=== PATIENT | male | born 2000 | race Caucasian/White ===

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

== ENCOUNTER 2019-04-16 07:52 | Emergency (ER) | payer OTHER ==
[~2019-04-16] VITALS: Ht 177.8 cm; Wt 77.2 kg
[~2019-04-16 07:52] MED LIST changes: +IBUP-1022 PO; +SERT-141 PO; -SERT50TA PO
[2019-04-16] MEDS ORDERED: NS 1,000 ML IV SCH (08:30)
[2019-04-16 08:57] LABS: BASO % 0.2 % (0.0-1.0); EOS # 0.1 10^3/uL (0.0-0.5); EOS % 0.3 % (0.0-3.0); HEMATOCRIT 45.2 % (42.0-52.0); HEMOGLOBIN 15.4 g/dl (13.5-17.5); LYMPH # 2.3 10^3/uL (1.5-5.0); LYMPH % 12.7 % (24.0-44.0); MEAN CORPUSCULAR HEMOGLOBIN 30.7 pg (27.0-33.0); MEAN CORPUSCULAR HGB CONC 34.1 g/dl (32.0-36.5); MONO # 0.7 10^3/uL (0.0-0.8); MONO % 3.7 % (0.0-5.0); NEUTROPHILS # 15.2 10^3/uL (1.5-8.5); NEUTROPHILS % 82.7 % (36.0-66.0); PLATELET COUNT, AUTOMATED 267 10^3/uL (150-450); RED BLOOD COUNT 5.02 10^6/uL (4.30-6.10); WHITE BLOOD COUNT 18.4 10^3/uL (4.0-10.0)
[2019-04-16 09:26] LABS: ALBUMIN 4.5 GM/DL (3.2-5.2); ALT/SGPT 24 U/L (12-78); BILIRUBIN,DIRECT 0.2 MG/DL (0.0-0.2); BILIRUBIN,TOTAL 0.7 MG/DL (0.2-1.0); BLOOD UREA NITROGEN 10 MG/DL (7-18); CALCIUM LEVEL 9.8 MG/DL (8.5-10.1); CARBON DIOXIDE LEVEL 31 MEQ/L (21-32); CHLORIDE LEVEL 104 MEQ/L (98-107); CREATININE FOR GFR 0.78 MG/DL (0.70-1.30); GLUCOSE, FASTING 106 MG/DL (70-100); LIPASE 80 U/L (73-393); POTASSIUM SERUM 3.8 MEQ/L (3.5-5.1); SODIUM LEVEL 139 MEQ/L (136-145)
[2019-04-16] MEDS: GASTROGRAFIN SOLUTION 30ML PO SCH ×2 (09:56→10:20)
[2019-04-16] MEDS ORDERED: ONDANSETRON 4MG/2ML VIAL (J2405) IV ONE (10:30)
[2019-04-16] MEDS ORDERED: ISOVUE-370 76% 100ML VIAL (Q9967) As Ordered ONE (11:29)
[2019-04-16] MEDS ORDERED: KETOROLAC 30 MG/ML VIAL (J1885) IV ONE (12:00)
--- NOTE | 2019-04-16 12:20 | REP ---
CT ABDOMEN PELVIS WITH IV AND ORAL CONTRAST: HISTORY: Abdomen pain. Bloody stools. CT CONTRAST DOSE: 100 mL of intravenous Isovue 370. CT FINDINGS: Digital preliminary swim coach radiograph is unremarkable. There are several tiny granulomatous nodules in the lung bases bilaterally. No pleural effusion is seen. The liver and spleen are normal in size homogeneous in texture. There is a tiny splenule in the left upper quadrant. No adrenal lesion is observed. No abnormalities noted in the pancreas. The gallbladder is unremarkable. The kidneys enhance symmetrically and are morphologically intact. No hydronephrosis or calculus is seen. No retroperitoneal mass or adenopathy is observed. There is a pattern of mild mural thickening diffusely involving the left colon distal to the splenic flexure region consistent with enterocolitis. Seminal vesicles prostate and urinary bladder are unremarkable. The distal ileum appears intact. A normal appendix is seen medial to the cecum. This extends well into the right inferior pelvis. There is no appendiceal inflammation. No abdominal wall defect is seen. There is no evidence of free intraperitoneal air or abnormal fluid collection. No bony destructive lesion is appreciated. IMPRESSION: Mild enterocolitis picture involving the left colon distal to the splenic flexure. Granulomatous nodules in the lung bases bilaterally. Electronically Signed by Rafiq Hannon MD 04/16/2019 05:16 P
[2019-04-16] MEDS ORDERED: ONDA4TAB6 PO (12:50)
[2019-04-16 13:24] LABS: C REACTIVE PROTEIN QUANTITATIV < 0.30 MG/DL (0.00-0.30); RHEUMATOID FACTOR QUANT < 10.0 IU/ML (<15.0)
[2019-04-16 13:41] VITALS: BP 132/78
[2019-04-16 13:59] LABS: ERYTHROCYTE SEDIMENTATION RATE 3 mm/hr (0-15)
[2019-04-19 00:07] LABS: ANCA-ATYPICAL <1:20 titer (Neg:<1:20); ANTINUCLEAR ANTIBODIES DIRECT Negative (Negative); CYTOPLASMIC NEUTROP AB ANCA-C <1:20 titer (Neg:<1:20); PERINUCLEAR AB ANCA-P <1:20 titer (Neg:<1:20)
== END 2019-04-16 13:42 | disposition home or self-care (01) ==
LOC: M ED 07:52
DX: K52.9 Noninfective gastroenteritis and colitis, unspecified (principal); J98.4 Other disorders of lung; K92.1 Melena; D72.829 Elevated white blood cell count, unspecified; J45.909 Unspecified asthma, uncomplicated; F33.9 Major depressive disorder, recurrent, unspecified; F41.9 Anxiety disorder, unspecified
CPT/HCPCS: 74177; 80048; 80076; 81001; 83690; 85025; 85652; 86038; 86140; 86256; 86431; 86850; 86900; 86901; 87507; 96374; 96375; 99284; J1885; J2405; Q9963; Q9967

== ENCOUNTER → 2019-06-18 | Outpatient (CLI) | payer OTHER ==
[~2019-06-18] MED LIST changes: +AMOX875T2; +ISOVUE-370 76% 100ML VIAL (Q9967) As Ordered ONE; +ONDA4TAB6 PO
--- NOTE | 2019-06-18 09:36 | REP ---
Clinical: Abnormal lung findings. Technique: Axial contrast enhanced images from the thoracic inlet to the upper abdomen with coronal and sagittal re-formations using 75 ml Isovue 370 intravenous contrast material. Comparison: None. Findings: The bilateral lung tierney are well-aerated and relatively symmetric. Few small scattered lower lobe nodules up to approximately 2 mm remains stable and consistent with small likely benign granulomas. No further consolidation, significant nodule or mass lesion. No pleural effusion. No pneumothorax. Tracheobronchial tree is patent. No adenopathy. Mediastinum demonstrates normal thoracic aorta, pulmonary vasculature and heart/pericardium. Limited upper abdomen demonstrates normal bilateral adrenal glands. Musculoskeletal structures are intact. Impression: 1. Few stable scattered small basilar granulomas up to 2 mm likely representing benign granulomatous changes. 2. No significant mediastinal or pleuroparenchymal process otherwise noted. Electronically Signed by Sky Melvin MD 06/18/2019 09:27 A
== END ==
LOC: M RAD 08:45
PROVIDERS: ATTEND Internal Medicine Pulmonary Disease
DX: R91.8 Other nonspecific abnormal finding of lung field (principal)
CPT/HCPCS: 71260; Q9967

== ENCOUNTER → 2019-06-19 | Outpatient (REF) | payer OTHER ==
[~2019-06-19] MED LIST changes: -ISOVUE-370 76% 100ML VIAL (Q9967) As Ordered ONE
== END ==
LOC: M LAB REF 17:06
PROVIDERS: ATTEND Physician Assistant
DX: J02.9 Acute pharyngitis, unspecified (principal)

== ENCOUNTER 2019-06-20 16:21 | Emergency (ER) | payer OTHER ==
[~2019-06-20] VITALS: Ht 175.3 cm; Wt 74.4 kg
[~2019-06-20 16:21] MED LIST changes: -AMOX875T2
[2019-06-20] MEDS ORDERED: AMOX875T2 (16:31)
[2019-06-20] MEDS ORDERED: diphenhydrAMINE INJ 50MG/ML VIAL (J1200) IV ONE (19:30)
[2019-06-20] MEDS ORDERED: KETOROLAC 30 MG/ML VIAL (J1885) IV ONE (19:30)
[2019-06-20] MEDS ORDERED: NS 1,000 ML IV ONE (19:30)
[2019-06-20] MEDS ORDERED: METOCLOPRAMIDE INJ 10MG/2ML VIAL (J2765) IV ONE (19:30)
[2019-06-20 20:13] LABS: HEMOGLOBIN 15.8 g/dl (13.5-17.5); MEAN CORPUSCULAR HEMOGLOBIN 30.8 pg (27.0-33.0); MEAN CORPUSCULAR HGB CONC 34.3 g/dl (32.0-36.5); MEAN CORPUSCULAR VOLUME 89.7 fl (80.0-96.0); PLATELET COUNT, AUTOMATED 177 10^3/uL (150-450); RED BLOOD COUNT 5.13 10^6/uL (4.30-6.10); WHITE BLOOD COUNT 8.3 10^3/uL (4.0-10.0)
[2019-06-20 20:36] LABS: ATYPICAL LYMPH 19 % (0-5); BASOPHILS 2 % (0-1); EOSINOPHILS 1 % (0-3); LYMPHOCYTES 21 % (16-44); MONOCYTES 5 % (0-5); NEUTROPHILS 47 % (28-66)
[2019-06-20 20:38] LABS: PLATELET ESTIMATE NORMAL (NORMAL)
--- NOTE | 2019-06-20 20:41 | REPVR ---
PROCEDURE INFORMATION: Exam: CT Head Without Contrast Exam date and time: 06/20/2019 7:31 PM Age: 18 years old Clinical indication: Pain; Headache; Additional info: Severe headache, neck stiffness TECHNIQUE: Imaging protocol: Computed tomography of the head without contrast. Radiation optimization: All CT scans at this facility use at least one of these dose optimization techniques: automated exposure control; mA and/or kV adjustment per patient size (includes targeted exams where dose is matched to clinical indication); or iterative reconstruction. COMPARISON: CT Head without contrast 07/26/2016 12:00 PM FINDINGS: Brain: The amezcua-white differentiation appears preserved. There is no evidence of mass effect. Ventricles: Normal ventricles. Bones/joints: There is no evidence of fracture. Sinuses: Clear paranasal sinuses. Mastoid air cells: Clear mastoid air cells. Soft tissues: Unremarkable. IMPRESSION: Normal appearing CT scan of the brain Electronically signed by: Michael Wade On 06/20/2019 20:40:52 PM
[2019-06-20 20:42] LABS: ALBUMIN 4.2 GM/DL (3.2-5.2); ALT/SGPT 41 U/L (12-78); BILIRUBIN,DIRECT 0.2 MG/DL (0.0-0.2); BILIRUBIN,TOTAL 0.5 MG/DL (0.2-1.0); BLOOD UREA NITROGEN 5 MG/DL (7-18); CALCIUM LEVEL 9.1 MG/DL (8.5-10.1); CARBON DIOXIDE LEVEL 29 MEQ/L (21-32); CHLORIDE LEVEL 102 MEQ/L (98-107); CREATININE FOR GFR 0.84 MG/DL (0.70-1.30); GLUCOSE, FASTING 90 MG/DL (70-100); LIPASE 86 U/L (73-393); POTASSIUM SERUM 3.7 MEQ/L (3.5-5.1); SODIUM LEVEL 138 MEQ/L (136-145); TOTAL PROTEIN 7.3 GM/DL (6.4-8.2)
--- NOTE | 2019-06-20 20:49 | REPVR ---
PROCEDURE INFORMATION: Exam: CT Cervical Spine Without Contrast Exam date and time: 06/20/2019 7:31 PM Age: 18 years old Clinical indication: Neck pain; Additional info: Severe neck pain, headache TECHNIQUE: Imaging protocol: Computed tomography images of the cervical spine without contrast. Radiation optimization: All CT scans at this facility use at least one of these dose optimization techniques: automated exposure control; mA and/or kV adjustment per patient size (includes targeted exams where dose is matched to clinical indication); or iterative reconstruction. COMPARISON: No relevant prior studies available. FINDINGS: Vertebrae: The cervical vertebra and facet joints appear in alignment. The dens appears intact in the lateral masses of C1 appear symmetric. Discs/Spinal canal/Neural foramina: No disc herniations. No spinal canal stenosis. No neural foraminal narrowing. Retropharyngeal space: There is no evidence of retropharyngeal soft tissue swelling. Soft tissues: Unremarkable. Thyroid: Normal thyroid. Lymph nodes: There are approximally 12 lymph nodes at the right side of the neck with the largest measuring 1.7 cm. There are approximately 8 small lymph nodes left side of the neck. IMPRESSION: 1. No evidence of fracture. 2. Enlarged lymph nodes right side of the neck. Electronically signed by: Michael Wade On 06/20/2019 20:49:01 PM
[2019-06-20 21:45] LABS: MONO SCRN POSITIVE (NEGATIVE)
[2019-06-20 22:26] VITALS: BP 124/56
== END 2019-06-20 22:26 | disposition home or self-care (01) ==
LOC: M ED 16:21
DX: B27.90 Infectious mononucleosis, unspecified without complication (principal); R59.9 Enlarged lymph nodes, unspecified
CPT/HCPCS: 70450; 72125; 80048; 80076; 81001; 83605; 83690; 85025; 86308; 87040; 87486; 87581; 87633; 87798; 96374; 96375; 99284; J1200; J1885; J2765

== ENCOUNTER → 2019-06-28 | Outpatient (CLI) | payer OTHER ==
[~2019-06-28] MED LIST changes: +AMOX875T2
--- NOTE | 2019-06-28 09:43 | REP ---
Clinical: Mononucleosis. Splenomegaly. Technique: Real time amezcua scale ultrasound examination using curved array transducer. Findings: Ultrasound examination demonstrates enlarged spleen measuring 13.5 x 13.3 x 7.0 cm (splenic index equals 1240). The 12 mm splenule is identified adjacent to the hilum. No significant splenic mass lesion. The left kidney is normal in reniform shape without hydronephrosis and measures 12.3 x 5.9 x 4.5 cm. No ascites in the left upper quadrant noted. Impression: Splenomegaly without focal splenic lesion identified. Electronically Signed by Sky Melvin MD 06/28/2019 09:35 A
== END ==
LOC: M RAD 09:01
PROVIDERS: ATTEND Physician Assistant
DX: R10.9 Unspecified abdominal pain (principal)

== ENCOUNTER → 2019-07-18 | Outpatient (CLI) | payer OTHER ==
--- NOTE | 2019-07-19 07:29 | REP ---
Clinical: History of mononucleosis with splenomegaly. Comparison: 06/28/2019. Technique: Real time amezcua scale and color evaluation using curved array transducer. Findings: The spleen is normal in contour, size, echogenicity without focal splenic lesion identified. Spleen measures 11.6 x 4.4 x 11.0 cm (splenic index = 561). Left kidney is normal in reniform shape and echogenicity without hydronephrosis and measures 11.7 x 5.0 x 5.2 cm. No ascites in the visualized left upper quadrant. Impression: Normal spleen. Electronically Signed by Sky Melvin MD 07/19/2019 07:20 A
== END ==
LOC: M RAD 09:48
PROVIDERS: ATTEND Physician Assistant
DX: R16.1 Splenomegaly, not elsewhere classified (principal)

== ENCOUNTER → 2020-02-26 | Outpatient (CLI) | payer OTHER ==
[2020-02-26 18:28] LABS: BASO # 0.1 10^3/uL (0.0-0.2); BASO % 0.5 % (0.0-1.0); EOS # 0.1 10^3/uL (0.0-0.5); EOS % 1.1 % (0.0-3.0); HEMATOCRIT 44.9 % (42.0-52.0); HEMOGLOBIN 14.5 g/dl (13.5-17.5); LYMPH # 3.1 10^3/uL (1.5-5.0); MEAN CORPUSCULAR HEMOGLOBIN 29.8 pg (27.0-33.0); MEAN CORPUSCULAR HGB CONC 32.3 g/dl (32.0-36.5); MEAN CORPUSCULAR VOLUME 92.4 fl (80.0-96.0); MONO # 0.6 10^3/uL (0.0-0.8); MONO % 6.4 % (0.0-5.0); NEUTROPHILS # 6.1 10^3/uL (1.5-8.5); NEUTROPHILS % 60.7 % (36.0-66.0); PLATELET COUNT, AUTOMATED 249 10^3/uL (150-450); RED BLOOD COUNT 4.86 10^6/uL (4.30-6.10)
[2020-02-26 18:36] LABS: ALBUMIN 4.3 GM/DL (3.2-5.2); ALT/SGPT 16 U/L (12-78); AMYLASE 34 U/L (25-115); BILIRUBIN,TOTAL 0.5 MG/DL (0.2-1.0); BLOOD UREA NITROGEN 12 MG/DL (7-18); CALCIUM LEVEL 9.3 MG/DL (8.5-10.1); CARBON DIOXIDE LEVEL 31 MEQ/L (21-32); CHLORIDE LEVEL 105 MEQ/L (98-107); CREATININE FOR GFR 0.86 MG/DL (0.70-1.30); GLUCOSE, FASTING 93 MG/DL (70-100); LIPASE 80 U/L (73-393); POTASSIUM SERUM 4.2 MEQ/L (3.5-5.1); SODIUM LEVEL 142 MEQ/L (136-145); TOTAL PROTEIN 7.3 GM/DL (6.4-8.2)
[2020-02-27 07:18] LABS: H PYLORI QUALITATIVE IgG NEGATIVE (NEGATIVE)
== END ==
LOC: M WUC 15:24
PROVIDERS: ATTEND Nurse Practitioner Family
DX: R10.84 Generalized abdominal pain (principal)

== ENCOUNTER → 2020-07-08 | Outpatient (CLI) | payer OTHER ==
--- NOTE | 2020-07-08 14:26 | REP ---
INDICATION: ABNORMAL FINDING OF LUNG FIELD COMPARISON: 06/18/2019 TECHNIQUE: Axial noncontrast images from the thoracic inlet to the upper abdomen with coronal and sagittal reformations. This CT examination was performed using the following dose reduction techniques: Automated exposure control, adjustment of mA and/or kv according to the patient's size, and use of iterative reconstruction technique. FINDINGS: Bilateral lung tierney are relatively well aerated and symmetric. Few stable noncalcified nodules at the lung bases measuring up to roughly 2-3 mm are unchanged. No new consolidation, suspicious nodule or mass lesion appreciated. No pleural effusion. No pneumothorax. Tracheobronchial tree is patent. No adenopathy. Further evaluation of the mediastinum demonstrates normal thoracic aorta, pulmonary vasculature, and heart/pericardium. Small amount of residual thymic tissue in the anterior mediastinum noted and stable. Thyroid gland is normal. Surrounding musculoskeletal structures are intact. Limited upper abdomen demonstrates normal bilateral adrenal glands. IMPRESSION: Small stable scattered noncalcified granulomas up to 2-3 mm without new acute process appreciated. Findings likely represent sequelae of prior granulomatous disease. <Electronically signed by Sky Melvin > 07/08/20 [id number]
== END ==
LOC: M RAD 13:38
PROVIDERS: ATTEND Physician Assistant
DX: R91.8 Other nonspecific abnormal finding of lung field (principal)

== ENCOUNTER 2020-07-19 10:14 | Emergency (ER) | payer OTHER ==
[~2020-07-19] VITALS: Ht 175.3 cm; Wt 72.1 kg
[2020-07-19 11:15] LABS: BASO # 0.1 10^3/uL (0.0-0.2); BASO % 0.6 % (0.0-1.0); EOS # 0.2 10^3/uL (0.0-0.5); EOS % 2.3 % (0.0-3.0); HEMATOCRIT 44.9 % (42.0-52.0); HEMOGLOBIN 15.1 g/dl (13.5-17.5); LYMPH # 2.8 10^3/uL (1.5-5.0); LYMPH % 33.8 % (24.0-44.0); MEAN CORPUSCULAR HEMOGLOBIN 30.5 pg (27.0-33.0); MEAN CORPUSCULAR HGB CONC 33.6 g/dl (32.0-36.5); MEAN CORPUSCULAR VOLUME 90.7 fl (80.0-96.0); MONO # 0.6 10^3/uL (0.0-0.8); MONO % 6.9 % (2.0-8.0); NEUTROPHILS # 4.7 10^3/uL (1.5-8.5); NEUTROPHILS % 55.9 % (36.0-66.0); PLATELET COUNT, AUTOMATED 233 10^3/uL (150-450); RED BLOOD COUNT 4.95 10^6/uL (4.30-6.10); WHITE BLOOD COUNT 8.3 10^3/uL (4.0-10.0)
[2020-07-19] MEDS ORDERED: ACETAMINOPHEN 500 MG TAB PO ONE (11:30)
[2020-07-19 11:40] LABS: BLOOD UREA NITROGEN 13 MG/DL (7-18); CALCIUM LEVEL 9.6 MG/DL (8.5-10.1); CARBON DIOXIDE LEVEL 31 MEQ/L (21-32); CHLORIDE LEVEL 104 MEQ/L (98-107); CREATININE FOR GFR 0.86 MG/DL (0.70-1.30); GLOMERULAR FILTRATION RATE > 60.0 (>60); GLUCOSE, FASTING 92 MG/DL (70-100); POTASSIUM SERUM 4.3 MEQ/L (3.5-5.1); SODIUM LEVEL 138 MEQ/L (136-145)
[2020-07-19 12:48] LABS: CHLAMYDIA DNA AMPLIFICATION NEGATIVE (NEGATIVE); GC DNA AMPLIFICATION NEGATIVE (NEGATIVE)
--- NOTE | 2020-07-19 12:50 | REP ---
INDICATION: reported lump left testicle COMPARISON: None. TECHNIQUE: Christianson scale and color Doppler evaluation using linear and curved array transducer with color Doppler evaluation. FINDINGS: The bilateral testicles are normal in appearance and vascularity without evidence for infectious/inflammatory process, torsion, or mass. Right epididymal cyst measures 3 mm and right tunica cyst measures 3 mm. Left epididymal cyst measures 2 mm. No hydrocele. No varicoceles. Further directed ultrasound over the presumed left palpable mass demonstrates no obvious underlying abnormality. Right testicle measures 4.4 x 2.2 x 3.3 cm. Left testicle measures 3.9 x 1.9 x 2.8 cm. IMPRESSION: Incidental epididymal and tunica cysts. Normal bilateral testicles. Palpable mass without underlying corresponding abnormality by ultrasound. <Electronically signed by Sky Melvin > 07/19/20 [id number]
[2020-07-19] MEDS ORDERED: MUPI2OI TOP (13:12)
[2020-07-19 13:19] VITALS: BP 123/71
--- NOTE | 2020-07-20 12:41 | ED PDOC ---
Post-Departure Follow-Up scrotal us faxed to dr saucedo for fu Dennis Beach MD Jul 20, 2020 12:41
== END 2020-07-19 13:21 | disposition home or self-care (01) ==
LOC: M ED 10:14
DX: N50.3 Cyst of epididymis (principal); L73.9 Follicular disorder, unspecified; N44.1 Cyst of tunica albuginea testis; F17.200 Nicotine dependence, unspecified, uncomplicated

== ENCOUNTER → 2021-07-16 | Outpatient (CLI) | payer OTHER ==
[~2021-07-16] MED LIST changes: -CEFD1CAP8 PO; +CEFD300C41 PO; +MUPI2OI TOP
== END ==
LOC: M RAD 07:12
PROVIDERS: ATTEND Physician Assistant
DX: R91.8 Other nonspecific abnormal finding of lung field (principal)

== ENCOUNTER 2021-08-27 12:36 | Emergency (ER) | payer OTHER ==
[~2021-08-27] VITALS: Ht 177.8 cm; Wt 75.3 kg
[2021-08-27] MEDS ORDERED: KETOROLAC 30 MG/ML 1ML VIAL IV ONE (15:25)
[2021-08-27 16:14] LABS: BASO # 0.1 10^3/uL (0.0-0.2); BASO % 0.5 % (0.0-1.0); EOS # 0.1 10^3/uL (0.0-0.5); EOS % 0.8 % (0.0-3.0); HEMATOCRIT 45.6 % (42.0-52.0); HEMOGLOBIN 15.7 g/dl (13.5-17.5); LYMPH # 2.9 10^3/uL (1.5-5.0); LYMPH % 29.3 % (24.0-44.0); MEAN CORPUSCULAR HEMOGLOBIN 30.8 pg (27.0-33.0); MEAN CORPUSCULAR HGB CONC 34.4 g/dl (32.0-36.5); MEAN CORPUSCULAR VOLUME 89.6 fl (80.0-96.0); MONO # 0.6 10^3/uL (0.0-0.8); MONO % 6.3 % (2.0-8.0); NEUTROPHILS # 6.2 10^3/uL (1.5-8.5); NEUTROPHILS % 62.7 % (36.0-66.0); PLATELET COUNT, AUTOMATED 259 10^3/uL (150-450); RED BLOOD COUNT 5.09 10^6/uL (4.30-6.10); WHITE BLOOD COUNT 9.8 10^3/uL (4.0-10.0)
[2021-08-27 16:22] LABS: BLOOD UREA NITROGEN 7 MG/DL (7-18); CALCIUM LEVEL 9.9 MG/DL (8.5-10.1); CARBON DIOXIDE LEVEL 27 MEQ/L (21-32); CHLORIDE LEVEL 106 MEQ/L (98-107); CREATININE FOR GFR 0.68 MG/DL (0.70-1.30); GLOMERULAR FILTRATION RATE > 60.0 (>60); GLUCOSE, FASTING 89 MG/DL (70-100); POTASSIUM SERUM 4.1 MEQ/L (3.5-5.1); SODIUM LEVEL 139 MEQ/L (136-145)
[2021-08-27 16:27] LABS: CK-MB VALUE MASS < 1.0 NG/ML (<3.6); CPK CREATINE PHOSPHOKINASE 94 U/L (39-308); MB/CK RELATIVE INDEX 1.06 (< OR =4)
[2021-08-27] MEDS ORDERED: NAPR-837 PO (16:49)
[2021-08-27 17:02] VITALS: BP 119/61
[2021-08-27 17:51] LABS: RSV AMPLIFICATION NEGATIVE (NEGATIVE)
== END 2021-08-27 17:04 | disposition home or self-care (01) ==
LOC: M ED 12:36
DX: M94.0 Chondrocostal junction syndrome [Tietze] (principal); F31.9 Bipolar disorder, unspecified; F17.200 Nicotine dependence, unspecified, uncomplicated; F12.10 Cannabis abuse, uncomplicated
CPT/HCPCS: 71046; 80048; 82550; 82553; 85025; 85379; 87631; 93005; 96374; 99284; J1885

== ENCOUNTER → 2021-09-02 | Outpatient (REF) | payer OTHER ==
[~2021-09-02] MED LIST changes: +NAPR-837 PO
== END ==
LOC: M LAB REF 16:10
PROVIDERS: ATTEND Physician Assistant
DX: R50.9 Fever, unspecified (principal)

== ENCOUNTER → 2022-06-28 | Outpatient (REF) | payer OTHER ==
[2022-06-28 17:06] LABS: BASO % 0.6 % (0.0-1.0); EOS # 0.2 10^3/uL (0.0-0.5); EOS % 3.2 % (0.0-3.0); HEMATOCRIT 46.5 % (42.0-52.0); HEMOGLOBIN 15.9 g/dl (13.5-17.5); LYMPH # 2.1 10^3/uL (1.5-5.0); LYMPH % 34.4 % (24.0-44.0); MEAN CORPUSCULAR HEMOGLOBIN 30.6 pg (27.0-33.0); MEAN CORPUSCULAR HGB CONC 34.2 g/dl (32.0-36.5); MEAN CORPUSCULAR VOLUME 89.4 fl (80.0-96.0); MONO # 0.5 10^3/uL (0.0-0.8); MONO % 7.7 % (2.0-8.0); NEUTROPHILS # 3.3 10^3/uL (1.5-8.5); NEUTROPHILS % 53.8 % (36.0-66.0); PLATELET COUNT, AUTOMATED 268 10^3/uL (150-450); WHITE BLOOD COUNT 6.2 10^3/uL (4.0-10.0)
[2022-06-28 17:34] LABS: THYROID STIMULATING HORMONE 0.806 uIU/ML (0.55-4.78)
[2022-06-28 17:35] LABS: FREE T4 1.19 NG/DL (0.89-1.76)
[2022-06-28 17:44] LABS: ALBUMIN 4.8 G/DL (3.2-5.2); ALKALINE PHOSPHATASE 62 U/L (46-116); ALT/SGPT 21 U/L (7.0-40); AST/SGOT 26 U/L (<34); BLOOD UREA NITROGEN 13 MG/DL (9-23); CALCIUM LEVEL 9.9 MG/DL (8.5-10.1); CARBON DIOXIDE LEVEL 31 MMOL/L (20-31); CHLORIDE LEVEL 102 MMOL/L (98-107); CHOLESTEROL LEVEL 140 MG/DL (<200); CHOLESTEROL RISK RATIO 4.15 (<5); GLUCOSE, FASTING 93 MG/DL (60-100); HDL CHOLESTEROL 33.7 MG/DL (>40); LDL CHOLESTEROL 94.1 MG/DL (<100); NON-HDL-C 106 MG/DL; POTASSIUM SERUM 4.3 MMOL/L (3.5-5.1); SODIUM LEVEL 140 MMOL/L (136-145); TOTAL PROTEIN 7.7 G/DL (5.7-8.2); TRIGLYCERIDES LEVEL 61 MG/DL (<150)
[2022-06-28 20:08] LABS: GLOMERULAR FILTRATION RATE > 60.0 (>60)
== END ==
LOC: M LAB REF 16:30
PROVIDERS: ATTEND Nurse Practitioner Family
DX: Z68.26 Body mass index [BMI] 26.0-26.9, adult (principal)

== ENCOUNTER → 2022-06-28 | Outpatient (CLI) | payer OTHER | LOC: M WUC 14:03 | PROVIDERS: ATTEND Nurse Practitioner Family | DX: R06.09 Other forms of dyspnea (principal) ==

== ENCOUNTER 2023-06-03 20:27 | Emergency (ER) | payer OTHER ==
[~2023-06-03] VITALS: Ht 175.3 cm; Wt 81.5 kg
[~2023-06-03 20:27] MED LIST changes: +CEFD1CAP9 PO; -CEFD300C41 PO; +IBUP1TAB5 PO
[2023-06-03 20:58] LABS: BASO # 0.1 10^3/uL (0.0-0.2); BASO % 0.4 % (0.0-1.0); EOS # 0.1 10^3/uL (0.0-0.5); EOS % 0.8 % (0.0-3.0); HEMATOCRIT 43.7 % (42.0-52.0); HEMOGLOBIN 15.2 g/dl (13.5-17.5); LYMPH % 25.3 % (24.0-44.0); MEAN CORPUSCULAR HEMOGLOBIN 30.9 pg (27.0-33.0); MEAN CORPUSCULAR HGB CONC 34.8 g/dl (32.0-36.5); MEAN CORPUSCULAR VOLUME 88.8 fl (80.0-96.0); MONO # 1.1 10^3/uL (0.0-0.8); NEUTROPHILS # 10.5 10^3/uL (1.5-8.5); NEUTROPHILS % 66.2 % (36.0-66.0); PLATELET COUNT, AUTOMATED 255 10^3/uL (150-450); RED BLOOD COUNT 4.92 10^6/uL (4.30-6.10); WHITE BLOOD COUNT 15.9 10^3/uL (4.0-10.0)
[2023-06-03 21:35] LABS: CK-MB VALUE MASS < 1.0 NG/ML (<3.6)
[2023-06-03 21:36] LABS: BLOOD UREA NITROGEN 14 MG/DL (9-23); CALCIUM LEVEL 9.4 MG/DL (8.5-10.1); CARBON DIOXIDE LEVEL 29 MMOL/L (20-31); CHLORIDE LEVEL 105 MMOL/L (98-107); CPK CREATINE PHOSPHOKINASE 237 U/L (46-171); CREATININE FOR GFR 0.86 MG/DL (0.70-1.30); GLOMERULAR FILTRATION RATE > 60.0 (>60); GLUCOSE, FASTING 90 MG/DL (60-100); MB/CK RELATIVE INDEX 0.42 (< OR =4); POTASSIUM SERUM 3.7 MMOL/L (3.5-5.1); SODIUM LEVEL 140 MMOL/L (136-145)
[2023-06-03] MEDS ORDERED: KETOROLAC 30 MG/ML 1ML VIAL IV ONE (23:30)
[2023-06-03] MEDS ORDERED: ISOVUE-370 76% 100ML VIAL As Ordered ONE (23:39)
[2023-06-04 00:21] LABS: CK-MB VALUE MASS < 1.0 NG/ML (<3.6)
[2023-06-04 00:22] LABS: CPK CREATINE PHOSPHOKINASE 191 U/L (46-171); MB/CK RELATIVE INDEX 0.52 (< OR =4)
[2023-06-04 02:00] VITALS: BP 115/55; TEMP 98; O2SAT 99
[2023-06-04] MEDS ORDERED: NAPR-837 PO (02:29)
== END 2023-06-04 02:38 | disposition home or self-care (01) ==
LOC: M ED 20:27
DX: R07.9 Chest pain, unspecified (principal); I45.19 Other right bundle-branch block; F31.9 Bipolar disorder, unspecified; F32.A Depression, unspecified; F17.200 Nicotine dependence, unspecified, uncomplicated; F12.10 Cannabis abuse, uncomplicated; Z79.1 Long term (current) use of non-steroidal anti-inflammatories (NSAID)
CPT/HCPCS: 71046; 71275; 80048; 82550; 82553; 85025; 87486; 87581; 87633; 87798; 93005; 96374; 99284; J1885; Q9967

== ENCOUNTER 2023-09-10 18:58 | Emergency (ER) | payer OTHER ==
[~2023-09-10] VITALS: Ht 177.8 cm; Wt 78.9 kg
[2023-09-10 20:16] VITALS: BP 111/63; TEMP 98.7; O2SAT 98
[2023-09-10] MEDS: TETANUS/DIPHTHERIA TOX ADSORB ADULT 0.5ML SYR/VIAL IM ONE (20:21)
== END 2023-09-10 20:38 | disposition home or self-care (01) ==
LOC: M ED 18:58
DX: S61.012A Laceration without foreign body of left thumb without damage to nail, initial encounter (principal); W26.0XXA Contact with knife, initial encounter; Y92.009 Unspecified place in unspecified non-institutional (private) residence as the place of occurrence of the external cause; Y93.89 Activity, other specified; Y99.9 Unspecified external cause status

== ENCOUNTER → 2024-06-04 | Outpatient (REF) | payer OTHER, SELFPAY ==
[~2024-06-04] MED LIST changes: +ONDA-282 PO; -ONDA4TAB6 PO
[2024-06-04 17:35] LABS: BASO # 0.1 10^3/uL (0.0-0.2); BASO % 0.8 % (0.0-1.0); EOS # 0.3 10^3/uL (0.0-0.5); EOS % 3.2 % (0.0-3.0); HEMATOCRIT 45.6 % (42.0-52.0); HEMOGLOBIN 15.6 g/dl (13.5-17.5); LYMPH # 3.5 10^3/uL (1.5-5.0); LYMPH % 34.8 % (24.0-44.0); MEAN CORPUSCULAR HEMOGLOBIN 30.1 pg (27.0-33.0); MEAN CORPUSCULAR HGB CONC 34.2 g/dl (32.0-36.5); MONO # 0.7 10^3/uL (0.0-0.8); MONO % 6.9 % (2.0-8.0); NEUTROPHILS # 5.4 10^3/uL (1.5-8.5); NEUTROPHILS % 53.9 % (36.0-66.0); PLATELET COUNT, AUTOMATED 251 10^3/uL (150-450); RED BLOOD COUNT 5.18 10^6/uL (4.30-6.10)
[2024-06-04 17:37] LABS: ALBUMIN 4.1 G/DL (3.2-5.2); ALKALINE PHOSPHATASE 70 U/L (40-129); ALT/SGPT 33 U/L (7.0-40); AST/SGOT 19 U/L (<34); BILIRUBIN,TOTAL 0.5 MG/DL (0.3-1.2); BLOOD UREA NITROGEN 14 MG/DL (9-23); CALCIUM LEVEL 9.3 MG/DL (8.5-10.1); CARBON DIOXIDE LEVEL 28 MMOL/L (20-31); CHLORIDE LEVEL 102 MMOL/L (98-107); CREATININE FOR GFR 0.76 MG/DL (0.70-1.30); GLOMERULAR FILTRATION RATE > 60.0 (>60); GLUCOSE, FASTING 102 MG/DL (60-100); MAGNESIUM LEVEL 1.8 MG/DL (1.8-2.4); SODIUM LEVEL 139 MMOL/L (136-145); TOTAL PROTEIN 7.1 G/DL (5.7-8.2)
[2024-06-04 17:39] LABS: THYROID STIMULATING HORMONE 1.101 uIU/ML (0.55-4.78)
[2024-06-04 18:40] LABS: HEMOGLOBIN A1c 4.9 % (4.0-6.0)
== END ==
LOC: M LAB REF 16:13
PROVIDERS: ATTEND Nurse Practitioner Family
DX: R42 Dizziness and giddiness (principal)